=== PATIENT | female | born 1990 | race Caucasian/White ===

== ENCOUNTER 2020-01-08 06:28 | Day surgery (SDC) | payer SELFPAY ==
[2020-01-08] MEDS ORDERED: Lactated Ringers 1,000 ML IV SCH (07:00)
--- NOTE | 2020-01-08 07:09 | PCM.PREANE ---
Preanesthetic Assessment - Anesthesia/Transfusion/Family Hx Anesthesia History: Prior Anesthesia Without Reaction Other Type of Anesthesia Reaction Comment: "my oxygen saturations dropped in recovery" Family History of Anesthesia Reaction: No Transfusion History: No Prior Transfusion(s) Intubation History: Unknown - Review of Systems General: No Symptoms Pulmonary: No Symptoms Cardiovascular: No Symptoms Gastrointestinal: No Symptoms Neurological: No Symptoms Other: Reports: None - Physical Assessment Vital Signs: Last Vital Signs Temp 37.1 C 01/08/20 06:45 Pulse 87 01/08/20 06:45 Resp 16 01/08/20 06:45 BP 112/74 01/08/20 06:45 Pulse Ox 97 01/08/20 06:45 Height: 5 ft 3 in Weight: 107.048 kg ASA Class: 2 Mental Status: Alert & Oriented x3 Airway Class: Mallampati = 1 Dentition: Reports: Normal Dentition, [place](s) (x1 upper right (back)) Thyro-Mental Finger Breadths: 3 Mouth Opening Finger Breadths: 3 ROM/Head Extension: Full Lungs: Clear to Auscultation, Normal Respiratory Effort Cardiovascular: Regular Rate, Regular Rhythm - Lab Values: Laboratory Last Values WBC 7.19 K/uL (4.0-11.0) 01/08/20 06:46 RBC 4.58 M/uL (4.30-5.90) 01/08/20 06:46 Hgb 13.9 g/dL (12.0-16.0) 01/08/20 06:46 Hct 41.5 % (36.0-46.0) 01/08/20 06:46 MCV 90.6 fL (80.0-98.0) 01/08/20 06:46 MCH 30.3 pg (27.0-32.0) 01/08/20 06:46 MCHC 33.5 g/dL (31.0-37.0) 01/08/20 06:46 RDW Std Deviation 40.2 fl (28.0-62.0) 01/08/20 06:46 RDW Coeff of Mariya 12 % (11.0-15.0) 01/08/20 06:46 Plt Count 180 K/uL (150-400) 01/08/20 06:46 MPV 10.60 fL (7.40-12.00) 01/08/20 06:46 - Allergies Allergies/Adverse Reactions: Allergies Allergy/AdvReac Type Severity Reaction Status Date / Time No Known Allergies Allergy Verified 01/05/20 11:22 - Blood Blood Available: No - Anesthesia Plan Pre-Op Medication Ordered: None - Acknowledgements Anesthesia Type Planned: MAC (general anesthesia ) Pt an Appropriate Candidate for the Planned Anesthesia: Yes Alternatives and Risks of Anesthesia Discussed w Pt/Guardian: Yes Pt/Guardian Understands and Agrees with Anesthesia Plan: Yes PreAnesthesia Questionnaire HEENT History: Reports: None Cardiovascular History: Reports: None Respiratory History: Reports: None Gastrointestinal History: Reports: Irritable Bowel Syndrome Genitourinary History: Reports: None 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: , Other (See Below) (occasional breast feeding ) Musculoskeletal History: Reports: Fracture Neurological History: Reports: Other (See Below) Other Neuro History: "undiagnosed muscle spasms" Psychiatric History: Reports: Anxiety, Depression, PTSD Endocrine/Metabolic History: Reports: Obesity/BMI 30+ (BMI 41.8) Hematologic History: Reports: None Immunologic History: Reports: None Oncologic (Cancer) History: Reports: None Dermatologic History: Reports: None - Past Surgical History Head Surgeries/Procedures: Reports: None HEENT Surgical History: Reports: Tonsillectomy Cardiovascular Surgical History: Reports: None Respiratory Surgical History: Reports: None GI Surgical History: Reports: None Female Surgical History: Reports: Other (See Below) Other Female Surgeries/Procedures: excision of labial lesion Endocrine Surgical History: Reports: None Neurological Surgical History: Reports: None Musculoskeletal Surgical History: Reports: ORIF Other Musculoskeletal Surgeries/Procedures:: ORIF rt ankle fracture Oncologic Surgical History: Reports: None Dermatological Surgical History: Reports: None - SUBSTANCE USE Smoking Status *Q: Former Smoker Tobacco Use Within Last Twelve Months: No - HOME MEDS Home Medications: Home Meds Magnesium 1 tab PO DAILY 01/05/20 [History] Multivitamin [Multivitamins] 1 tab PO DAILY 01/05/20 [History] - CURRENT (IN HOUSE) MEDS Current Meds: Current Medications Lactated Ringer's (Ringers, Lactated) 1,000 mls @ 100 mls/hr IV ASDIRECTED [facility] [place]
[2020-01-08] MEDS ORDERED: Propofol 200 MG/20 ML SDV ONE ×2 (07:23→08:18)
[2020-01-08] MEDS ORDERED: fentaNYL 100 MCG/2 ML SDV ONE (07:23)
[2020-01-08] MEDS ORDERED: Midazolam 1 MG/ML 2 ML SDV ONE (07:23)
[2020-01-08] MEDS ORDERED: fentaNYL 100 MCG/2 ML SDV IVPUSH PRN (08:34)
[2020-01-08] MEDS ORDERED: Ketorolac 30 MG/ML SDV ONE (08:37)
--- NOTE | 2020-01-08 08:44 | PCM.OPNOTE ---
- General Post-Op/Procedure Note Date of Surgery/Procedure: 01/08/20 Operative Procedure(s): Loop Electrode excisional procedure (LEEP) of the cervix Findings: dense acetowhite epithelium from 8 -12 o'clock of the ectocervix. Pre Op Diagnosis: RENO II Post-Op Diagnosis: Same Anesthesia Technique: Local, MAC Primary Surgeon: Haley Mckinney Anesthesia Provider: Fiorella Godfrey Project Development Manager: Socorro Baker Pathology: Ectocervix open at 12 o'clock. ectocervical margin from 6-9 o'clock labeled at 9 o'clock, endocervical biopsy labeled at 12 o'clock. endocervical curetting. Fluid Replacement, Intraop: 600 EBL in mLs: 10 Complications: None Known Condition: Good
--- NOTE | 2020-01-08 08:59 | PCM.POSTAN ---
POST ANESTHESIA ASSESSMENT - MENTAL STATUS Mental Status: Alert, Oriented - VITAL SIGNS Vital Signs: Last Vital Signs Temp 36.4 C 01/08/20 08:39 Pulse 79 01/08/20 08:55 Resp 18 01/08/20 08:55 BP 111/74 01/08/20 08:55 Pulse Ox 96 01/08/20 08:55 - RESPIRATORY Respiratory Status: Respiratory Rate WNL, Airway Patent, O2 Saturation Stable - CARDIOVASCULAR CV Status: Pulse Rate WNL, Blood Pressure Stable - GASTROINTESTINAL GI Status: No Symptoms - PAIN Pain Score: 1 - POST OP HYDRATION Hydration Status: Adequate & Stable - OBSERVATIONS Free Text/Narrative:: No anesthesia problems.
--- NOTE | 2020-01-08 09:55 | PCM48HPAN ---
Post Anesthesia Note - EVALUATION WITHIN 48HRS OF ANESTHETIC Vital Signs in Normal Range: Yes Patient Participated in Evaluation: Yes Respiratory Function Stable: Yes Airway Patent: Yes Cardiovascular Function Stable: Yes Hydration Status Stable: Yes Pain Control Satisfactory: Yes Nausea and Vomiting Control Satisfactory: Yes Mental Status Recovered: Yes Vital Signs: Last Vital Signs Temp 36.4 C 01/08/20 08:39 Pulse 64 01/08/20 09:30 Resp 18 01/08/20 09:49 BP 108/74 01/08/20 09:49 Pulse Ox 98 01/08/20 09:49 - COMMENTS/OBSERVATIONS Free Text/Narrative:: No anesthesia problems.
--- NOTE | 2020-01-08 17:33 | OR ---
SURGEON: Haley Mckinney M.D. DATE OF PROCEDURE: 01/08/2020 PREOPERATIVE DIAGNOSIS: Cervical intraepithelial neoplasia 2. POSTOPERATIVE DIAGNOSIS: Cervical intraepithelial neoplasia 2. PROCEDURE: Loop electrode excisional procedure. PRIMARY SURGEON: Haley Mckinney MD ANESTHESIA: MAC with cervical block. ESTIMATED BLOOD LOSS: 10 mL. FLUIDS: 600 mL of crystalloid. FINDINGS: Upon colposcopy, there was dense acetowhite epithelium extending approximately from 8 o'clock to 12 o'clock on the cervix. There were no vascular changes. COMPLICATIONS: None known. DISPOSITION: Stable to Recovery. BRIEF HISTORY: This is a 29-year-old female. She presents for treatment of RENO-2. She was consented for loop electrode excisional procedure including understanding the risks of bleeding, infection, future cervical incompetence with pregnancies. Understanding these risks, she desires to proceed. DESCRIPTION OF PROCEDURE: With the patient in dorsal lithotomy position, under adequate MAC analgesia, appropriate time-out was held. A speculum was then placed in the vagina. The cervix was treated with dilute acetic acid. Colposcopy was performed with findings as noted above. The cervix was then treated with Lugol's solution. The nonstaining area from approximately 8 to 12 o'clock was discretely visible as it was on a colposcopy. A total of 10 mL of 1% lidocaine with epinephrine was injected at the 12, 5, and 7 o'clock position of the cervix using the apple type loop as circumferential excision was performed using 60 pure cut. This was open at 12 o'clock and sent to Pathology. The area from 6 to 12 o'clock was further excised using a simple loop and labeled at 12 o'clock. A small excision of the upper portion of the previously excised lesion was removed and labeled at 12 o'clock as the endocervical specimen. ECC was then collected on a Cytobrush. The base was cauterized with pure coag 60 ball-tip cautery and then treated with Monsel's solution. The cervix was completely hemostatic. Therefore, the insulated speculum and vaginal sidewall retractor were removed and final sponge, needle, and instrument counts were reported as correct. There were no known complications. The patient was transferred to Recovery in good condition. REGINA / BROOK /[id number]
== END 2020-01-08 10:10 | disposition home or self-care (01) ==
LOC: MW.SDS 06:28
PROVIDERS: ATTEND Obstetrics & Gynecology
DX: D06.0 Carcinoma in situ of endocervix (principal); A63.0 Anogenital (venereal) warts; Z11.59 Encounter for screening for other viral diseases; Z79.899 Other long term (current) drug therapy; Z87.891 Personal history of nicotine dependence; Z98.890 Other specified postprocedural states
CPT/HCPCS: 36415; 57460; 84703; 85027; 87635; 88305; 88307; J1885; J2250; J2704; J3010; J7120; 00940; U0002